=== PATIENT | male | born 1980 | race Caucasian/White ===

== ENCOUNTER 2019-07-28 20:33 | Emergency (ER) | payer SELFPAY ==
[~2019-07-28] VITALS: Ht 170.2 cm; Wt 66.0 kg
[2019-07-28 20:33] VITALS: BP 113/77
[2019-07-28] MEDS ORDERED: AMOX500C PO (20:53)
--- NOTE | 2019-07-28 20:54 | PHYS DOC ---
Past History Past Medical History: No Pertinent History Additional Past Surgical Histo: esophageal surgery as a Smoking: Cigarettes Drug Use: Other (sober from meth use. A year sober) Adult General HPI HPI Patient is a 39-year-old male, with a history of severe global dental decay, who presents to the emergency department for evaluation. He went to a dentist to get his teeth pulled, but was told he had a bad infection and was sent to the emergency department. Antibiotics. He states over the past few hours he has developed some swelling on his left lower jaw. He denies any difficulty breathing or voice changes, trismus, fevers, or chills. There are no alleviating or exacerbating factors to his symptoms. Review of Systems Review of Systems Constitutional: Denies fever or chills [] Eyes: Denies change in visual acuity, redness, or eye pain [] HENT: Denies nasal congestion or sore throat [] Respiratory: Denies cough or shortness of breath [] Musculoskeletal: Denies back pain or joint pain [] Integument: Denies rash or skin lesions [] Neurologic: Denies headache, focal weakness or sensory changes [] Physical Exam Physical Exam PHYSICAL EXAM: CONSTITUTIONAL: Well developed, well nourished HEAD: normocephalic, atraumatic EENT: PERRL, EOMI. Conjunctivae normal color, sclerae non-icteric; moist mucous membranes. There is severe diffuse dental decay. There is mild soft tissue swelling of the left mandible, the floor the mouth is negative for fluctuance, NECK: Supple, non-tender; no meningismus. LUNGS: Lungs CTA, breathing even and unlabored. Normal air movement. HEART: Regular rate and rhythm, no murmur CHEST: No deformity; non-tender ABDOMEN: The abdomen is soft, and non-tender, no masses or bruits. EXTREM: Normal ROM; no deformity, no calf tenderness. Normal pulses palpable in all extremities. There is no pedal edema. SKIN: No rash; no diaphoresis EKG EKG [] Radiology/Procedures Radiology/Procedures [] Course & Med Decision Making Course & Med Decision Making Discussed importance of continued dental follow-up, and return precautions. Dragon Disclaimer Dragon Disclaimer This electronic medical record was generated, in whole or in part, using a voice recognition dictation system. Departure Departure: Impression: Primary Impression: Dental caries Additional Impression: Dental abscess Disposition: HOME, SELF-CARE Condition: STABLE Patient Instructions: Dental Abscess, Dental Caries Scripts Amoxicillin (AMOXICILLIN) 500 Mg Capsule 1 CAP PO TID for -, #30 CAP Prov: ERICH AGARWAL MD 07/28/19 Problem Qualifiers ERICH AGARWAL MD Jul 28, 2019 20:54
== END 2019-07-28 21:00 | disposition home or self-care (01) ==
LOC: ER 20:33
DX: K02.9 Dental caries, unspecified (principal); K04.7 Periapical abscess without sinus; F17.210 Nicotine dependence, cigarettes, uncomplicated
CPT/HCPCS: 99283

== ENCOUNTER 2020-01-16 13:29 | Emergency (ER) | payer SELFPAY ==
[~2020-01-16] VITALS: Ht 170.2 cm; Wt 63.0 kg
[~2020-01-16 13:29] MED LIST: AMOX500C PO
[2020-01-16] MEDS ORDERED: IV NORMAL SALINE 1,000ML 1,000 ML IV ONE (14:00)
--- NOTE | 2020-01-16 14:10 | EKG ---
[address] [address] Test Date: 2020-01-16 Test Time: 13:56:19 Pat Name: MALIKA FITZGERALD Department: Room: Gender: M [employer] Up Operator: : 1980 Requested By: MIKO GOFF Order Number: [id number] Reading MD: Measurements Intervals [place] Rate: 98 P: 71 WV: 174 QRS: 93 QRSD: 80 T: 70 QT: 340 QTc: 436 Interpretive Statements SINUS RHYTHM RIGHTWARD AXIS R-S TRANSITION ZONE IN V LEADS DISPLACED TO THE LEFT OTHERWISE NORMAL ECG RI6.02 No previous ECG available for comparison
[2020-01-16 14:22] LABS: BASO % 1 % (0-3); EOS # 0.1 x10^3/uL (0.0-0.7); EOS % 2 % (0-3); HEMATOCRIT 43.8 % (39.0-53.0); HEMOGLOBIN 14.9 g/dL (13.0-17.5); LYMPH # 1.5 x10^3/uL (1.0-4.8); LYMPH % 25 % (24-48); MEAN CORPUSCULAR HEMOGLOBIN 34 pg (25-35); MEAN CORPUSCULAR HGB CONC 34 g/dL (31-37); MEAN CORPUSCULAR VOLUME 101 fL (79-100); MONO # 0.6 x10^3/uL (0.0-1.1); MONO % 9 % (0-9); NEUT # 3.8 x10^3uL (1.8-7.7); NEUT % 64 % (31-73); PLATELET COUNT 272 x10^3/uL (140-400); RED BLOOD COUNT 4.35 x10^6/uL (4.30-5.70); RED CELL DISTRIBUTION WIDTH 13.7 % (11.5-14.5); WHITE BLOOD COUNT 5.9 x10^3/uL (4.0-11.0)
--- NOTE | 2020-01-16 14:22 | RAD ---
Examination: CT HEAD WO CONTRAST History: seizure like activity Comparison/Correlation: None Findings: Axial images of the head were obtained without contrast. Ventricles are normal size. No intracranial hemorrhage, midline shift, or mass effect. Bony structures are unremarkable. Visualized paranasal sinuses are unremarkable. Impression: No acute process. Electronically signed by: Richard Torres MD (01/16/2020 2:19 PM) [facility]
[2020-01-16 14:26] LABS: CALCIUM 9.1 mg/dL (8.5-10.1); GFR 83.2; POTASSIUM 3.7 mmol/L (3.5-5.1)
--- NOTE | 2020-01-16 14:37 | PHYS DOC ---
Past History Past Medical History: Anxiety, Depression Past Surgical History: Other Additional Past Surgical Histo: Abd surgery Smoking: Cigarettes Alcohol Use: Occasionally Drug Use: Other General Adult EDM: Chief Complaint: TREMORS HPI: HPI: Patient is a [age] year old [sex] who presents with [] Review of Systems: Review of Systems: Constitutional: Denies fever or chills Eyes: Denies redness or eye pain HENT: Denies nasal congestion or sore throat Respiratory: Denies cough or shortness of breath Cardiovascular: Denies chest pain or palpitations GI: Denies abdominal pain, nausea, or vomiting : Denies dysuria or hematuria Musculoskeletal: Denies back pain or joint pain Integument: Denies rash or skin lesions Neurologic: Denies headache, focal weakness or sensory changes Complete systems were reviewed and found to be within normal limits, except as documented in this note. Current Medications: Current Meds: Current Medications Medications (Trade) Dose Ordered Sig/Audelia Start Time Stop Time Status Last Admin Dose Admin Lorazepam (Ativan Inj) 0.5 mg 1X ONCE 01/16/20 14:00 01/16/20 14:01 DC 01/16/20 14:19 0.5 MG Sodium Chloride 1,000 ml @ 1,000 mls/hr 1X ONCE 01/16/20 14:00 01/16/20 14:59 01/16/20 14:17 1,000 MLS/HR Allergies: Allergies: Allergies Coded Allergies Type Severity Reaction Last Updated Verified No Known Drug Allergies 01/16/20 No Physical Exam: PE: Constitutional: Well developed, well nourished, no acute distress, non-toxic appearance. [] HENT: Normocephalic, atraumatic, bilateral external ears normal, oropharynx moist, no oral exudates, nose normal. [] Eyes: PERRLA, EOMI, conjunctiva normal, no discharge. [] Neck: Normal range of motion, no tenderness, supple, no stridor. [] Cardiovascular:Heart rate regular rhythm, no murmur [] Lungs & Thorax: Bilateral breath sounds clear to auscultation [] Abdomen: Bowel sounds normal, soft, no tenderness, no masses, no pulsatile masses. [] Skin: Warm, dry, no erythema, no rash. [] Back: No tenderness, no CVA tenderness. [] Extremities: No tenderness, no cyanosis, no clubbing, ROM intact, no edema. [] Neurologic: Alert and oriented X 3, normal motor function, normal sensory function, no focal deficits noted. [] Psychologic: Affect normal, judgement normal, mood normal. [] Current Patient Data: Labs: Laboratory Tests Test 01/16/20 13:58 White Blood Count 5.9 x10^3/uL (4.0-11.0) Red Blood Count 4.35 x10^6/uL (4.30-5.70) Hemoglobin 14.9 g/dL (13.0-17.5) Hematocrit 43.8 % (39.0-53.0) Mean Corpuscular Volume 101 fL (79-100) H Mean Corpuscular Hemoglobin 34 pg (25-35) Mean Corpuscular Hemoglobin Concent 34 g/dL (31-37) Red Cell Distribution Width 13.7 % (11.5-14.5) Platelet Count 272 x10^3/uL (140-400) Neutrophils (%) (Auto) 64 % (31-73) Lymphocytes (%) (Auto) 25 % (24-48) Monocytes (%) (Auto) 9 % (0-9) Eosinophils (%) (Auto) 2 % (0-3) Basophils (%) (Auto) 1 % (0-3) Neutrophils # (Auto) 3.8 x10^3uL (1.8-7.7) Lymphocytes # (Auto) 1.5 x10^3/uL (1.0-4.8) Monocytes # (Auto) 0.6 x10^3/uL (0.0-1.1) Eosinophils # (Auto) 0.1 x10^3/uL (0.0-0.7) Basophils # (Auto) 0.0 x10^3/uL (0.0-0.2) Sodium Level 138 mmol/L (136-145) Potassium Level 3.7 mmol/L (3.5-5.1) Chloride Level 100 mmol/L (98-107) Carbon Dioxide Level 30 mmol/L (21-32) Anion Gap 8 (6-14) Blood Urea Nitrogen 12 mg/dL (8-26) Creatinine 1.0 mg/dL (0.7-1.3) Estimated GFR (Cockcroft-Gault) 83.2 BUN/Creatinine Ratio 12 (6-20) Glucose Level 102 mg/dL (70-99) H Calcium Level 9.1 mg/dL (8.5-10.1) Magnesium Level Pending Total Bilirubin Pending Aspartate Amino Transferase (AST) Pending Alanine Aminotransferase (ALT) Pending Alkaline Phosphatase Pending Creatine Kinase Pending Creatine Kinase MB (Mass) Pending Creatine Kinase MB Relative Index Pending Total Protein Pending Albumin Pending Albumin/Globulin Ratio Pending Vital Signs: Vital Signs Date Time Temp Pulse Resp B/P (MAP) Pulse Ox O2 Delivery O2 Flow Rate FiO2 01/16/20 13:39 97.5 105 16 141/96 (111) 97 Room Air EKG: EKG: @1356 NSR at 98bpm, NO ST elevation, QRS 80ms, QT/QTc 340/436ms Radiology/Procedures: Radiology/Procedures: PROCEDURE: CT HEAD WO CONTRAST Examination: CT HEAD WO CONTRAST History: seizure like activity Comparison/Correlation: None Findings: Axial images of the head were obtained without contrast. Ventricles are normal size. No intracranial hemorrhage, midline shift, or mass effect. Bony structures are unremarkable. Visualized paranasal sinuses are unremarkable. Impression: No acute process. Electronically signed by: Richard Torres MD (01/16/2020 2:19 PM) [facility] Course & Med Decision Making: Course & Med Decision Making Pertinent Labs and Imaging studies reviewed. (See chart for details) [] Dragon Disclaimer: Dragon Disclaimer: This electronic medical record was generated, in whole or in part, using a voice recognition dictation system. Departure Departure: Impression: Primary Impression: Intermittent tremor Additional Impression: Methamphetamine abuse Disposition: HOME/RESIDENCE PRIOR TO ADM Condition: STABLE Referrals: PCP,NO (PCP) TRESSA BOYD MD Patient Instructions: Methamphetamine Abuse, Complications, Tremor Justification of Admission: Justification of Admission: Justification of Admission Dx: N/A MIKO GOFF DO Jan 16, 2020 14:37
[2020-01-16 14:41] LABS: ALBUMIN 3.9 g/dL (3.4-5.0); ALBUMIN/GLOBULIN RATIO 1.1 (1.0-1.7); MAGNESIUM 2.2 mg/dL (1.8-2.4); TOTAL BILIRUBIN 0.7 mg/dL (0.2-1.0); TOTAL PROTEIN 7.5 g/dL (6.4-8.2)
[2020-01-16 15:01] LABS: BARBITURATES NEG (NEG); BENZODIAZEPINES NEG (NEG); CANNABINOIDS NEG (NEG); COCAINE NEG (NEG); METHADONE NEG (NEG); OPIATES NEG (NEG); PHENCYCLIDINE NEG (NEG)
[2020-01-16 15:04] LABS: AMPHETAMINE/METHAMPHETAMINE POS (NEG)
[2020-01-16 15:09] VITALS: BP 137/76
[2020-01-16 15:10] LABS: BACTERIA,URINE FEW /HPF (0-FEW); BILIRUBIN,URINE NEG (NEG); CLARITY,URINE CLEAR; COLOR,URINE AMBER; GLUCOSE,URINE NEG (NEG); NITRITE,URINE NEG (NEG); RBC,URINE OCC /HPF (0-2); SQUAMOUS EPITHELIAL CELL,UR OCC /LPF; WBC,URINE OCC /HPF (0-4)
== END 2020-01-16 15:30 | disposition home or self-care (01) ==
LOC: ER 13:29
DX: G25.2 Other specified forms of tremor (principal); F15.10 Other stimulant abuse, uncomplicated; F41.9 Anxiety disorder, unspecified; F32.9 Major depressive disorder, single episode, unspecified; F17.210 Nicotine dependence, cigarettes, uncomplicated; Z98.890 Other specified postprocedural states
CPT/HCPCS: 36415; 70450; 80053; 80307; 81001; 82553; 83605; 83735; 85025; 93005; 96374; 99285; G0480; J2060; J7030